=== PATIENT | female | born 1995 | race American Indian/Alaskan Native ===

== ENCOUNTER 2021-09-03 19:35 | Emergency (ER) | payer SELFPAY ==
[2021-09-03 21:44] VITALS: BP 170/103
[2021-09-03] MEDS ORDERED: ONDANSETRON 4 MG/2 ML INJ IV ONE (23:59)
[2021-09-03] MEDS ORDERED: SULFAMETHOXAZOLE/TRIMETHOPRIM 800/160MG DS TAB PO ONE (23:59)
[2021-09-03] MEDS ORDERED: HYDROmorphone 1 MG/1 ML INJ IV ONE (23:59)
[2021-09-03] MEDS ORDERED: LIDOCAINE (1%) 10 MG/1 ML VIAL 20 ML MDV INFILTRATI ONE (23:59)
[2021-09-04 01:04] LABS: Basophils % (Auto) 0.2 % (0.0-1.8); Eosinophils # (Auto) 0.1 K/mm3 (0.0-0.4); Eosinophils % (Auto) 1.9 % (0.0-4.3); Hematocrit 39.2 % (30.3-42.9); Hemoglobin 12.7 gm/dl (10.1-14.3); Lymphocytes # (Auto) 1.6 K/mm3 (1.2-5.4); Lymphocytes % (Auto) 22.5 % (13.4-35.0); Mean Corpuscular HGB Conc 32 % (30-34); Mean Corpuscular Volume 92 fl (79-97); Monocytes # (Auto) 0.6 K/mm3 (0.0-0.8); Monocytes % (Auto) 8.8 % (0.0-7.3); Platelet Count 254 K/mm3 (140-440); Red Blood Count 4.25 M/mm3 (3.65-5.03); Red Cell Distribution Width 12.7 % (13.2-15.2)
[2021-09-04 01:07] LABS: Alanine Aminotransferase 12 units/L (7-56); Albumin 4.8 g/dL (3.9-5); Blood Urea Nitrogen 10 mg/dL (7-17); Calcium 9.5 mg/dL (8.4-10.2); Hemolysis Index 12
[2021-09-04 01:08] LABS: BUN/Creatinine Ratio 14
--- NOTE | 2021-09-04 04:13 | Emergency Department Report ---
ED General Adult HPI - General Chief complaint: Skin/Abscess/Foreign Body Stated complaint: PAIN/FEVER Source: patient Mode of arrival: Ambulatory Limitations: No Limitations - History of Present Illness Initial comments: Patient is a 26-year-old -[place] female with no past medical history presents to the ED with complaint of acute onset persistent painful swollen mild erythematous maculopapular rash on pilonidal area for the last 3 weeks. Patient states that the pain is especially worsened in the last 5 days such that she has not been able to sit down because of worsening pain. Patient states that in the last 24 hours she was not able to sleep because of worsening pain. Patient denies nausea, vomiting, fever, chills, dizziness, syncope, numbness and tinglin g or weakness of lower extremities, bilaterally, low back pain, chest pain, urinary or bowel incontinence or saddle paresthesia. MD Complaint: Pilonidal rash and pain -: Sudden, week(s) (3) Location: buttocks Radiation: non-radiation Severity scale (0 -10): 8 Quality: aching, sharp Consistency: constant Improves with: none Worsens with: movement, rest Associated Symptoms: denies other symptoms, rash (Swollen, painful mild erythematous maculopapular rash on pilonidal area). denies: confusion, chest pain, cough, diaphoresis, fever/chills, loss of appetite, malaise, nausea/vomiting, seizure, shortness of breath, syncope, weakness Treatments Prior to Arrival: none - Related Data Previous Rx's Medication Instructions Recorded Last Taken Type Acetaminophen/Codeine [Tylenol 1 tab PO Q6H PRN #12 tab 09/04/21 Unknown Rx /Codeine # 3 tab] Clindamycin [Clindamycin CAP] 300 mg PO Q8HR #60 capsule 09/04/21 Unknown Rx Ibuprofen [Motrin] 600 mg PO Q8H PRN #30 tablet 09/04/21 Unknown Rx Sulfamethoxazole/Trimethoprim 1 each PO Q12H #20 tablet 09/04/21 Unknown Rx [Bactrim DS TAB] Allergies Allergy/AdvReac Type Severity Reaction Status Date / Time No Known Allergies Allergy Verified 09/03/21 21:43 ED Review of Systems ROS: Stated complaint: PAIN/FEVER Other details as noted in HPI Constitutional: denies: chills, fever Eyes: denies: eye pain, eye discharge, vision change ENT: denies: ear pain, throat pain Respiratory: denies: cough, shortness of breath, wheezing Cardiovascular: denies: chest pain, palpitations Endocrine: no symptoms reported Gastrointestinal: denies: abdominal pain, nausea, vomiting, diarrhea Genitourinary: denies: urgency, dysuria, discharge Musculoskeletal: denies: back pain, joint swelling, arthralgia Skin: rash (Swollen, painful, mild erythematous maculopapular rash on pilonidal area). denies: lesions Neurological: denies: headache, weakness, paresthesias Psychiatric: denies: anxiety, depression Hematological/Lymphatic: denies: easy bleeding, easy bruising ED Past Medical Hx - Past Medical History Previous Medical History?: No - Surgical History Past Surgical History?: No - Medications Home Medications: Home Medications Medication Instructions Recorded Confirmed Last Taken Type Acetaminophen/Codeine [Tylenol 1 tab PO Q6H PRN #12 tab 09/04/21 Unknown Rx /Codeine # 3 tab] Clindamycin [Clindamycin CAP] 300 mg PO Q8HR #60 capsule 09/04/21 Unknown Rx Ibuprofen [Motrin] 600 mg PO Q8H PRN #30 tablet 09/04/21 Unknown Rx Sulfamethoxazole/Trimethoprim 1 each PO Q12H #20 tablet 09/04/21 Unknown Rx [Bactrim DS TAB] ED Physical Exam - General Limitations: No Limitations General appearance: alert, in no apparent distress - Head Head exam: Present: atraumatic, normocephalic, normal inspection - Eye Eye exam: Present: normal appearance, PERRL, EOMI Pupils: Present: normal accommodation - ENT ENT exam: Present: normal exam, normal orophraynx, mucous membranes moist, TM's normal bilaterally, normal external ear exam - Neck Neck exam: Present: normal inspection, full ROM - Respiratory Respiratory exam: Present: normal lung sounds bilaterally. Absent: respiratory distress, wheezes, rales, rhonchi, chest wall tenderness, accessory muscle use, decreased breath sounds - Cardiovascular Cardiovascular Exam: Present: regular rate, normal rhythm, normal heart sounds. Absent: systolic murmur, diastolic murmur, rubs, gallop - GI/Abdominal GI/Abdominal exam: Present: soft, normal bowel sounds. Absent: tenderness, guarding, rebound, hyperactive bowel sounds, hypoactive bowel sounds, organomegaly - Extremities Exam Extremities exam: Present: normal inspection, full ROM, normal capillary refill - Back Exam Back exam: Present: normal inspection, full ROM. Absent: tenderness, CVA tenderness (R), CVA tenderness (L), muscle spasm, paraspinal tenderness - Neurological Exam Neurological exam: Present: alert, oriented X3, CN II-XII intact, normal gait, reflexes normal - Psychiatric Psychiatric exam: Present: normal affect, normal mood - Skin Skin exam: Present: warm, dry, intact, normal color, rash (Swollen, painful, mild erythematous maculopapular fluctuant rash on pilonidal area), erythema ED Course Vital Signs 09/03/21 09/03/21 21:42 21:44 Temperature 99.1 F Pulse Rate 78 Respiratory 16 Rate Blood Pressure 170/103 O2 Sat by Pulse 97 Oximetry - I & D Posterior Buttocks Type of Procedure: Simple Site: Pilonidal area Blade Size: 11 I & D Procedure: betadine prep, sterile drapes applied, sterile dressing applied, gauze wick placed Progress: The area was cleaned with normal saline and Betadine solution. 1% lidocaine solution was infiltrated in the area for anesthesia. When anesthesia was fully achieved, the area was incised and drained per protocol. Copious thick purulent and bloody discharge drained from the wound. The loculations were broken with hemostat and the wound is debrided completely and extensively with normal saline. Iodoform quarter inch gauze was used to pack the wound. The wound was then dressed appropriately with 4 x 4 gauzes and Tegaderm. Patient tolerated procedure well. On reevaluation, patient's pain is well controlled medication. Patient will discharge home on pain medications and antibiotics and advised to follow-up with her primary care physician in 7 to 10 days for reevaluation. Patient was also advised return to the ED in 2 days for wound recheck and packing removal. Patient was advised return to the ED immediately if symptoms get worse. ED Medical Decision Making - Lab Data Result diagrams: 09/04/21 00:17 09/04/21 00:17 - Medical Decision Making This is a 26-year-old -[place] female with no past medical history presents to the ED with complaint of acute onset persistent painful swollen mild erythematous maculopapular rash on pilonidal area for the last 3 weeks. Patient states that the pain is especially worsened in the last 5 days such that she has not been able to sit down because of worsening pain. Patient states that in the last 24 hours she was not able to sleep because of worsening pain. In the ED, patient is alert and oriented x3 and is not in any distress. Lab test results were reviewed and are all nonactionable except for mild hyponatremia 133 mmol/L. Patient was treated in the ED for pain and also given an initial antibiotics clindamycin 900 mg IV x1 as well as Bactrim DS p.o. x1. The area was cleaned wit h normal saline and Betadine solution. 1% lidocaine solution was infiltrated in the area for anesthesia. When anesthesia was fully achieved, the area was incised and drained per protocol. Copious thick purulent and bloody discharge drained from the wound. The loculations were broken with hemostat and the wound is debrided completely and extensively with normal saline. Iodoform quarter inch gauze was used to pack the wound. The wound was then dressed appropriately with 4 x 4 gauzes and Tegaderm. Patient tolerated procedure well. On reevaluation, patient's pain is well controlled medication. Patient will discharge home on pain medications and antibiotics and advised to follow-up with her primary care physician in 7 to 10 days for reevaluation. Patient was also advised return to the ED in 2 days for wound recheck and packing removal. Patient was advised return to the ED immediately if symptoms get worse. - Differential Diagnosis Pilonidal abscess; cellulitis; cutaneous abscess; folliculitis; Critical care attestation.: If time is entered above; I have spent that time in minutes in the direct care of this critically ill patient, excluding procedure time. ED Disposition Clinical Impression: Sacrococcygeal pilonidal cyst with abscess, Cellulitis and abscess of buttock Disposition: 01 HOME / SELF CARE / HOMELESS Is pt being admited?: No Does the pt Need Aspirin: No Condition: Stable Instructions: Incision and Drainage, Care After, Cellulitis, Adult, [id number], Pilonidal Cyst Drainage, Care After, Skin Abscess, [id number] Additional Instructions: Take medication with food, drink plenty fluids and follow-up with your primary care physician in 7 to 10 days for reevaluation. Return to the ED immediately if symptoms get worse. Return to the ED in 2 days for wound recheck and packing removal. Prescriptions: Sulfamethoxazole/Trimethoprim [Bactrim DS TAB] 1 each PO Q12H #20 tablet Clindamycin [Clindamycin CAP] 300 mg PO Q8HR #60 capsule Ibuprofen [Motrin] 600 mg PO Q8H PRN #30 tablet PRN Reason: Pain Acetaminophen/Codeine [Tylenol /Codeine # 3 tab] 1 tab PO Q6H PRN #12 tab PRN Reason: Severe pain Referrals: KELLY BAIG MD [Staff Physician] - 7-10 days Time of Disposition: 04:15 Print Language: GREEK
[2021-09-04] MEDS ORDERED: oxyCODONE /ACETAMINOPHEN 5-325MG TAB PO ONE (04:18)
[2021-09-04] MEDS ORDERED: KETOROLAC 30 MG/1 ML INJ IV ONE (04:18)
[2021-09-04] MEDS ORDERED: ONDANSETRON 4 MG/2 ML INJ IV ONE (04:18)
== END 2021-09-04 06:24 | disposition home or self-care (01) ==
LOC: ED 19:35
DX: L05.01 Pilonidal cyst with abscess (principal); Z79.899 Other long term (current) drug therapy
CPT/HCPCS: 10080; 36415; 80053; 84703; 85025; 96365; 96375; 96376; 99283; J1170; J1885; J2405; J3490; J7502